=== PATIENT | female | born 1950 | race Caucasian/White ===

== ENCOUNTER 2017-04-11 08:12 | Day surgery (SDC) | payer MEDICARE ==
[2017-04-08 09:37] VITALS: BMI 24.4
[2017-04-11] MEDS ORDERED: CEFAZOLIN/Water 2 GM/20 ML SYRINGE ONE (09:05)
[2017-04-11] MEDS ORDERED: Heparin 5,000 UNITS/ML VIAL ONE (09:05)
[2017-04-11] MEDS ORDERED: Fentanyl 100 MCG/2 ML VIAL ONE ×2 (09:24→10:35)
[2017-04-11] MEDS ORDERED: Midazolam HCl 2 mg/2 ml Vial ONE (09:24)
[2017-04-11] MEDS ORDERED: HYDROcodone/Acetaminophen 5/325 mg Tablet PO PRN ×2 (09:50)
[2017-04-11] MEDS ORDERED: Zolpidem Tartrate 5 MG TAB PO PRN (09:50)
[2017-04-11] MEDS ORDERED: traMADol HCl 50 MG TAB PO PRN ×2 (09:50)
[2017-04-11] MEDS ORDERED: Promethazine HCl 25 MG/ML VIAL IM PRN (09:50)
[2017-04-11] MEDS ORDERED: Ropivacaine 0.2% 550 ML 550 ML NERVE BLCK SCH (09:50)
[2017-04-11] MEDS ORDERED: Ondansetron HCl/PF 4 MG/2 ML Vial IVP PRN (09:50)
[2017-04-11] MEDS ORDERED: Fentanyl 100 MCG/2 ML VIAL IV PRN (09:51)
[2017-04-11] MEDS ORDERED: Gentamicin 80 MG/2 ML VIAL ONE (10:27)
[2017-04-11] MEDS ORDERED: Sodium Chloride 0.9% 20 ML ONE (10:27)
[2017-04-11] MEDS ORDERED: Ketorolac Tromethamine 30 MG/ML VIAL IVP SCH (12:00)
--- NOTE | 2017-04-11 12:13 | OP ---
PREOPERATIVE DIAGNOSES: 1. Right breast cancer. 2. Status post breast disproportion of breast reconstruction. 3. Axillary deformity. POSTOPERATIVE DIAGNOSES: 1. Right breast cancer. 2. Status post breast disproportion of breast reconstruction. 3. Axillary deformity. PROCEDURES: 1. Placement of right breast implant (). 2. Scar revision right axilla (14 cm) (42807, 13691 x2). OPERATIVE PROCEDURE: Following induction of adequate anesthesia, the patient was prepped and draped in the usual sterile fashion in the supine position. The existing right inframammary scar was incise d. Dissection was carried sharply down through the breast capsule to identify the implant pocket. T he pocket was inspected and was widely open. A sizer was used to determine what implant would give t he best symmetry. The above were a 590 mL smooth round implant was chosen. This was placed with chiquita rile gloves and after that field was copiously irrigated and inspected for meticulous hemostasis. Th e incision was closed with 3-0 PDS suture, followed by 3-0 Monocryl suture. The patient had a large tongue of tissue in her axilla. This was as a result of the mastectomy scar. This was elliptically excised and closed using 3-0 PDS suture and 3-0 Monocryl suture. The scar revision was 14 cm. The p atient tolerated the procedure well.
[2017-04-11] MEDS ORDERED: Ropivacaine 0.5% HCl/PF (150 MG/30 ML VIAL) ONE (13:41)
[2017-04-11] MEDS ORDERED: Ondansetron HCl/PF 4 MG/2 ML Vial ONE (15:03)
[2017-04-11] MEDS ORDERED: Lidocaine 1% PF 5 ML VIAL ONE (15:03)
[2017-04-11] MEDS ORDERED: PROPOFOL 200 MG/20 ML VIAL ONE (15:03)
[2017-04-11] MEDS ORDERED: Dexamethasone 20 MG/5 ML VIAL ONE (15:03)
== END 2017-04-11 13:55 | disposition home or self-care (01) ==
LOC: SDC 08:12
PROVIDERS: ATTEND Plastic Surgery
PROC: 0HRT0JZ Replacement of Right Breast with Synthetic Substitute, Open Approach (ICD-10-PCS; principal; 2017-04-11)
PROC: 0HBTXZZ (ICD-10-PCS; 2017-04-11)
DX: T85.44XA Capsular contracture of breast implant, initial encounter (principal); N64.89 Other specified disorders of breast; M19.90 Unspecified osteoarthritis, unspecified site; Z91.048 Other nonmedicinal substance allergy status; Z79.82 Long term (current) use of aspirin; Z79.899 Other long term (current) drug therapy; Z90.11 Acquired absence of right breast and nipple; Z98.890 Other specified postprocedural states; Z85.3 Personal history of malignant neoplasm of breast
CPT/HCPCS: 13101; 13102 ×2; 19342; A4306; 88305; A4216; J1100; J1580; J1644; J2001; J2250; J2405; J2704; J2795; J3010; J3370; J3490

== ENCOUNTER 2017-12-09 09:36 | Outpatient (CLI) | payer MEDICARE ==
--- NOTE | 2017-12-09 15:29 | BD ---
DEXA BONE DENSITY STUDY: Date: 12/09/17 COMPARISON: 12/02/14. HISTORY: 67-year-old postmenopausal female for screening for osteoporosis. FINDINGS: Lumbar Spine: BMD (g/cm2) L1 0.951 T-Score: -0.4 L2 1.098 T-Score: 0.6 L3 1.216 T-Score: 1.2 L4 1.072 T-Score: 0.1 L1-L4 1.087 T-Score: 0.4 Femoral Neck: 0.711 T-Score: -1.2 Total Femur: 0.884 T-Score: -0.5 IMPRESSION: Osteopenia. This patient has a 10 year WHO fracture risk of a major osteoporotic fracture of 9.3% and a hip fracture of 1.0%. POS: ANA LILIA
== END 2017-12-09 09:37 | disposition home or self-care (01) ==
LOC: BICMAMMO 09:36
PROVIDERS: ATTEND Family Medicine
DX: Z12.31 Encounter for screening mammogram for malignant neoplasm of breast (principal); M85.859 Other specified disorders of bone density and structure, unspecified thigh; Z80.3 Family history of malignant neoplasm of breast; Z85.3 Personal history of malignant neoplasm of breast
CPT/HCPCS: 77063; 77067; 77080

== ENCOUNTER 2018-10-20 08:55 | Day surgery (SDC) | payer MEDICARE ==
[2018-10-19 11:10] VITALS: BMI 24.3
[2018-10-20] MEDS ORDERED: Heparin 5,000 UNITS/ML VIAL ONE (09:19)
[2018-10-20] MEDS ORDERED: Fentanyl 100 MCG/2 ML VIAL ONE ×3 (10:19→14:04)
[2018-10-20] MEDS ORDERED: Famotidine/PF 20 mg/2ml Vial ONE (10:19)
[2018-10-20] MEDS ORDERED: Bupivacaine/Epinephrine 0.25% 30 ML VIAL ONE (10:31)
[2018-10-20] MEDS ORDERED: Gentamicin 80 MG/2 ML VIAL ONE (10:31)
[2018-10-20] MEDS ORDERED: Sodium Chloride 0.9% 10 ML ONE (10:31)
[2018-10-20] MEDS ORDERED: EPINEPHrine 1 MG/ML AMP ONE (10:31)
[2018-10-20] MEDS ORDERED: Lidocaine 1% PF 5 ML VIAL ONE (13:36)
[2018-10-20] MEDS ORDERED: Ondansetron PF 4 MG/2 ML Vial ONE (13:36)
[2018-10-20] MEDS ORDERED: PROPOFOL 200 MG/20 ML VIAL ONE (13:36)
[2018-10-20] MEDS ORDERED: Rocuronium Bromide 10 MG/ML (10ML VIAL) ONE (13:36)
[2018-10-20] MEDS ORDERED: Glycopyrrolate 0.2 MG/ML 5 ML SYRINGE ONE (13:36)
[2018-10-20] MEDS ORDERED: Ketorolac Tromethamine 30 MG/ML VIAL ONE (13:36)
[2018-10-20] MEDS ORDERED: Dexamethasone 20 MG/5 ML VIAL ONE (13:36)
[2018-10-20] MEDS ORDERED: Metoclopramide HCl 10 MG/2 ML VIAL ONE (13:36)
[2018-10-20] MEDS ORDERED: PHENYLEPHRINE-NS 100 MCG/ML 10 ML SYRINGE ONE (13:36)
[2018-10-20] MEDS ORDERED: Promethazine HCl 25 MG/ML VIAL IM/IV PRN (14:15)
[2018-10-20] MEDS ORDERED: Ondansetron HCl/PF 4 MG/2 ML Vial IVP PRN (14:15)
[2018-10-20] MEDS ORDERED: Non-Formulary Medication 1 EACH PO PRN (14:15)
--- NOTE | 2018-10-23 12:34 | OP ---
DATE OF PROCEDURE: 10/20/2018 PREOPERATIVE DIAGNOSES: 1. History of breast cancer. 2. Disproportion of breast reconstruction. 3. Asymmetry of breast reconstruction. PROCEDURES PERFORMED: 1. Exchange right breast implant. 2. Left mastopexy. DESCRIPTION OF PROCEDURE: Upon induction of adequate anesthesia, the patient prepped and draped in usual sterile fashion in supine position. Attention was first turned to the right breast. The existing inframammary crease incision for scar was incised. Dissection was carried sharply down through the subcutaneous tissue to the capsule which was opened. The existing implant was removed. This was replaced with a [place] smooth round moderate plus profile implant. The pocket was copiously irrigated and inspected for meticulous hemostasis prior to closure with 3-0 PDS suture for the capsule followed by 3-0 PDS suture and 3-0 Monocryl suture for the inframammary crease incision. On the left breast, the disproportion was a combination of size as well as a very different inframammary crease. It was significantly lower on the left making bra wearing to be difficult. A transverse ellipse graft tissue was excised inferiorly. The inferior abdominal flap was then advanced superiorly and secured in an elevated position using interrupted running 2-0 PDS suture. This "reverse lift" essentially tucked the breast, then at a higher position of the inframammary crease. The remainder of the closure was done with 3-0 PDS suture and 3-0 Monocryl suture. The patient tolerated the procedure well. Job ID: [id number] [facility]
== END 2018-10-20 16:01 | disposition home or self-care (01) ==
LOC: SDC 08:55
PROVIDERS: ATTEND Plastic Surgery
PROC: 0H0T0ZZ Alteration of Right Breast, Open Approach (ICD-10-PCS; principal; 2018-10-20)
PROC: 0HPU0JZ Removal of Synthetic Substitute from Left Breast, Open Approach (ICD-10-PCS; 2018-10-20)
PROC: 0HRU0JZ Replacement of Left Breast with Synthetic Substitute, Open Approach (ICD-10-PCS; 2018-10-20)
DX: N60.22 Fibroadenosis of left breast (principal); N65.1 Disproportion of reconstructed breast; Z91.048 Other nonmedicinal substance allergy status; Z85.3 Personal history of malignant neoplasm of breast
CPT/HCPCS: 19316; 19380; 88305; 88341; 88342; L8600; J0131; J0171; J0690; J1100; J1580; J1644; J1885; J2001; J2405; J2704; J2765; J3010; J3370; J3490; S0028

== ENCOUNTER 2018-12-06 17:55 | Emergency (ER) | payer MEDICARE ==
[2018-12-06 18:23] LABS: #Basophils 0.1 thou/uL (0.0-0.2); #Eosinphils 0.1 thou/uL (0.0-0.7); #Monocytes 0.5 thou/uL (0.11-0.59); #Neutrophils 2.7 thou/uL (1.40-6.50); %Basophils 1.1 % (0.0-1.0); %Eosinophils 1.7 % (0.0-10.0); %Lymphocytes 46.5 % (21.0-51.0); %Monocytes 8.3 % (0.0-10.0); %Neutrophils 42.5 % (42.0-75.0); Hemoglobin 13.8 g/dL (12.0-16.0); Mean Corpuscular HGB CONC 34.1 g/dL (32.0-36.0); Mean Corpuscular Hemoglobin 32.2 pg (27.0-31.0); Mean Corpuscular Volume 94.3 fL (78.0-98.0); Mean Platelet Volume 7.7 fL (7.4-10.4); Platelet Count 239 thou/uL (130-400); RBC Distribution Width 12.4 % (11.5-14.5); Red Blood Cell (RBC) Count 4.29 mill/uL (4.20-5.40); White Blood Cell (WBC) Count 6.4 thou/uL (4.8-10.8)
[2018-12-06] MEDS ORDERED: Aspirin 325 MG TAB ONE (18:29)
--- NOTE | 2018-12-06 18:37 | RAD ---
PORTABLE CHEST: 12/06/18 HISTORY: Chest pain. Lungs are clear. Heart and mediastinum unremarkable. No evidence of vascular congestion. IMPRESSION: No acute findings. POS: AGW
[2018-12-06 18:45] LABS: ALT (SGPT) 37 U/L (8-55); AST (SGOT) 34 U/L (5-34); Albumin 4.4 g/dL (3.4-4.8); Alkaline Phosphatase 51 U/L (40-110); Anion Gap 13 mmol/L (10-20); BUN (Urea Nitrogen) 12 mg/dL (9.8-20.1); Bilirubin, Total 0.3 mg/dL (0.2-1.2); CK (CPK) 91 U/L (29-168); Calc. Creatinine Clearance 0 mL/min (70-130); Calcium 9.8 mg/dL (7.8-10.44); Carbon Dioxide 24 mmol/L (23-31); Chloride 107 mmol/L (98-107); Estimated GFR-MDRD 76; Globulin 2.8 g/dL (2.4-3.5); Glucose 92 mg/dL (80-115); Lipase 30 U/L (8-78); Potassium 4.1 mmol/L (3.5-5.1); Protein, Total 7.2 g/dL (6.0-8.3); Sodium 140 mmol/L (136-145)
--- NOTE | 2018-12-06 19:21 | CT ---
CT ANGIOGRAM THORAX WITH IV CONTRAST AND 3-D RECONSTRUCTIONS CLINICAL INDICATION: Chest pain which started yesterday. Patient states nonexertional substernal chest pain radiating to l eft breast. COMPARISON: None FINDINGS: Pulmonary arteries: No filling defects are seen in the pulmonary arteries to suggest a pulmonary embo riky. Aorta: Not opacified but it normal in caliber with scattered vascular calcifications. Lungs: Clear without evidence of consolidation or pleural effusion. No pulmonary nodule or mass is se en. Mediastinum: There is no evidence of lymphadenopathy. Thyroid gland: Grossly within normal limits for phase of imaging. Osseous structures: Degenerative changes are seen in the spine. No suspicious lytic or sclerotic osse ous lesions are identified. Chest wall: There are postsurgical changes related to right mastectomy with right breast prosthesis n oted. Upper abdomen: Postsurgical changes of the stomach are noted. Vascular calcifications are seen in the abdominal aorta. IMPRESSION: 1. No CT evidence of a pulmonary embolus.
[2018-12-06 20:24] LABS: Troponin I Less than 0.010 ng/mL (< 0.028)
== END 2018-12-06 20:55 | disposition home or self-care (01) ==
LOC: ERS 17:55
DX: R07.89 Other chest pain (principal); E78.5 Hyperlipidemia, unspecified; E78.00 Pure hypercholesterolemia, unspecified; F32.9 Major depressive disorder, single episode, unspecified; F41.9 Anxiety disorder, unspecified; Z85.3 Personal history of malignant neoplasm of breast; Z79.899 Other long term (current) drug therapy
CPT/HCPCS: 36415; 71045; 71275; 80053; 82550; 83690; 83880; 84484; 85025; 93005; 96360

== ENCOUNTER 2019-02-09 10:01 | Outpatient (CLI) | payer MEDICARE ==
--- NOTE | 2019-02-09 11:24 | MMO ---
Bilateral MAMMO Bilat Screen [facility]. CLINICAL HISTORY: Patient is 68 years old and is seen for screening. The patient has a history of left Breast reduction at age 68, left Breast reduction at age 51 - benign, right Mastectomy at age 51 - malignant and left Excisional Biopsy at age 15 - benign. VIEWS: The views performed were: bilateral craniocaudal with tomosynthesis and bilateral mediolateral oblique with tomosynthesis. FILMS COMPARED: The present examination has been compared to prior imaging studies performed at [facility] on 12/02/2014, 12/04/2015, 12/07/2016 and 12/09/2017. This study has been interpreted with the assistance of computer-aided detection. MAMMOGRAM FINDINGS: The breast is heterogeneously dense, which could obscure a lesion on mammography. There are stable benign appearing calcifications seen in the left breast. There are no suspicious masses, suspicious calcifications, or new areas of architectural distortion. IMPRESSION: THERE IS NO MAMMOGRAPHIC EVIDENCE OF MALIGNANCY. A ROUTINE FOLLOW-UP MAMMOGRAM IN 1 YEAR IS RECOMMENDED. THE RESULTS OF THIS EXAM WERE SENT TO THE PATIENT. ACR BI-RADS Category 2 - Benign finding MAMMOGRAPHY NOTE: 1. A negative mammogram report should not delay a biopsy if a dominant of clinically suspicious mass is present. 2. Approximately 10% to 15% of breast cancers are not detected by mammography. 3. Adenosis and dense breasts may obscure an underlying neoplasm. Reported by: SANDHYA EPSTEIN MD Electonically Signed: [id number]
== END 2019-02-09 10:02 | disposition home or self-care (01) ==
LOC: BICMAMMO 10:01
PROVIDERS: ATTEND Family Medicine
DX: Z12.31 Encounter for screening mammogram for malignant neoplasm of breast (principal)
CPT/HCPCS: 77063; 77067

== ENCOUNTER 2020-03-07 10:01 | Outpatient (CLI) | payer MEDICARE ==
--- NOTE | 2020-03-07 10:49 | MMO ---
Bilateral MAMMO Bilat Screen [facility]. CLINICAL HISTORY: Patient is 69 years old and is seen for screening. The patient has the following family history of breast cancer: paternal aunt, malignant (generic), X3. The patient has a history of left Breast reduction at age 68, left Breast reduction at age 51 - benign, right Mastectomy at age 51 - malignant and left Excisional Biopsy at age 15 - benign. VIEWS: The views performed were: left craniocaudal with tomosynthesis and left mediolateral oblique with tomosynthesis. FILMS COMPARED: The present examination has been compared to prior imaging studies performed at [facility] on 12/04/2015, 12/07/2016, 12/09/2017 and 02/09/2019. This study has been interpreted with the assistance of computer-aided detection. MAMMOGRAM FINDINGS: The breast is heterogeneously dense, which could obscure a lesion on mammography. There are benign appearing calcifications seen in the left breast. There are no suspicious masses, suspicious calcifications, or new areas of architectural distortion. IMPRESSION: THERE IS NO MAMMOGRAPHIC EVIDENCE OF MALIGNANCY. A ROUTINE FOLLOW-UP MAMMOGRAM IN 1 YEAR IS RECOMMENDED. THE RESULTS OF THIS EXAM WERE SENT TO THE PATIENT. ACR BI-RADS Category 2 - Benign finding MAMMOGRAPHY NOTE: 1. A negative mammogram report should not delay a biopsy if a dominant of clinically suspicious mass is present. 2. Approximately 10% to 15% of breast cancers are not detected by mammography. 3. Adenosis and dense breasts may obscure an underlying neoplasm. Reported by: FRANCIA AVILA MD Electonically Signed: [id number]
== END 2020-03-07 10:02 | disposition home or self-care (01) ==
LOC: BICMAMMO 10:01
PROVIDERS: ATTEND Family Medicine
DX: Z12.31 Encounter for screening mammogram for malignant neoplasm of breast (principal); Z80.3 Family history of malignant neoplasm of breast; Z98.82 Breast implant status; Z91.89 Other specified personal risk factors, not elsewhere classified; Z90.11 Acquired absence of right breast and nipple
CPT/HCPCS: 77063; 77067

== ENCOUNTER 2021-03-09 10:22 | Outpatient (CLI) | payer MEDICARE | END 2021-03-09 10:23 | disposition home or self-care (01) | LOC: BICMAMMO 10:22 | PROVIDERS: ATTEND Family Medicine | DX: Z12.31 Encounter for screening mammogram for malignant neoplasm of breast (principal); Z80.3 Family history of malignant neoplasm of breast; Z85.3 Personal history of malignant neoplasm of breast; Z91.89 Other specified personal risk factors, not elsewhere classified; Z90.11 Acquired absence of right breast and nipple; Z98.890 Other specified postprocedural states | CPT/HCPCS: 77063; 77067 ==

== ENCOUNTER 2022-06-22 13:07 | Outpatient (CLI) | payer MEDICARE | END 2022-06-22 13:08 | disposition home or self-care (01) | LOC: BICMAMMO 13:07 | PROVIDERS: ATTEND Family Medicine | DX: Z12.31 Encounter for screening mammogram for malignant neoplasm of breast (principal) | CPT/HCPCS: 77063; 77067 ==

== ENCOUNTER 2023-01-20 17:39 | Inpatient (IN) | payer MEDICARE ==
[2023-01-20 18:01] LABS: #Monocytes 0.6 thou/uL (0.11-0.59); #Neutrophils 5.7 thou/uL (1.40-6.50); %Basophils 0.1 % (0.0-1.0); %Lymphocytes 6.7 % (21.0-51.0); %Monocytes 9.3 % (0.0-10.0); %Neutrophils 83.5 % (42.0-75.0); Mean Corpuscular HGB CONC 35.1 g/dL (32.0-36.0); Mean Corpuscular Hemoglobin 31.6 pg (27.0-31.0); Mean Platelet Volume 9.8 fL (7.4-10.4); Platelet Count 132 10x3/uL (130-400); RBC Distribution Width 12.1 % (11.5-14.5); Red Blood Cell (RBC) Count 4.11 mill/uL (4.20-5.40); White Blood Cell (WBC) Count 6.9 10x3/uL (4.8-10.8)
[2023-01-20] MEDS ORDERED: Cefepime 2 GM VIAL ONE (18:09)
[2023-01-20] MEDS ORDERED: Sodium Chloride 0.9% 100 ML ONE (18:10)
[2023-01-20 18:25] LABS: ALT (SGPT) 14 U/L (8-55); AST (SGOT) 16 U/L (5-34); Albumin 3.5 g/dL (3.4-4.8); Alkaline Phosphatase 61 U/L (40-110); Anion Gap 12 mmol/L (10-20); BUN (Urea Nitrogen) 14 mg/dL (9.8-20.1); Bilirubin, Total 0.7 mg/dL (0.2-1.2); Calc. Creatinine Clearance 0 mL/min (70-130); Calcium 8.2 mg/dL (7.8-10.44); Carbon Dioxide 25 mmol/L (23-31); Chloride 96 mmol/L (98-107); Estimated GFR 76; Globulin 2.8 g/dL (2.4-3.5); Glucose 83 mg/dL (83-110); Lipase 12 U/L (8-78); Potassium 3.4 mmol/L (3.5-5.1); Protein, Total 6.3 g/dL (5.8-8.1); Sodium 130 mmol/L (136-145)
[2023-01-20 19:13] LABS: Bacteria/HPF None Seen HPF (None Seen); Bilirubin Negative (Negative); Blood, Urine 1+ (Negative); CAUTI Indications for Culture Alt mental st,lethar; Clarity Clear (Clear); Glucose, Urine (Dipstick) Normal (Negative); Ketone, Urine 40 mg/dL (Negative); Leukocyte Negative Leu/uL (Negative); Nitrite Negative (Negative); Protein, Urine (Dipstick) 10 mg/dL (Neg-Trace); Specific Gravity, Urine 1.013 (1.002-1.036); Squamous Epithelial 0-3 HPF (0-3); Urobilinogen Normal mg/dL (Less than 2); WBC/HPF 0-3 HPF (0-3)
[2023-01-20 19:14] LABS: Urine Culture Reflex No No
[2023-01-20] MEDS ORDERED: Vancomycin 1 GM/200 ML (FROZEN) BAG ONE (19:46)
[2023-01-20 19:54] LABS: SARS-CoV-2 NAA Rapid Test DETECTED (NotDetected)
[2023-01-20] MEDS ORDERED: Sodium Chloride 0.9% 1,000 ML IV SCH ×2 (21:00→22:45)
[2023-01-20 22:10] VITALS: BMI 23.0
[2023-01-20] MEDS ORDERED: Acetaminophen 325 MG TAB PO PRN (22:45)
[2023-01-20] MEDS ORDERED: Ondansetron ODT 4 MG TAB PO PRN (22:45)
[2023-01-20] MEDS ORDERED: Ondansetron PF 4 MG/2 ML Vial IVP PRN (22:45)
[2023-01-20] MEDS ORDERED: Potassium Chloride 20 MEQ TAB PO SCH (23:00)
[2023-01-20] MEDS ORDERED: REMDESIVIR 200 MG in Sodium Chloride 0.9% 250 ML 210 ML IV SCH (23:45)
[2023-01-20] MEDS ORDERED: Pharmacy to Dose REMDESIVIR IVPB PRN (23:56)
[2023-01-21] MEDS ORDERED: ALPRAZolam 0.25 MG TAB PO PRN (00:27)
[2023-01-21 05:54] LABS: #Monocytes 0.5 thou/uL (0.11-0.59); #Neutrophils 4.2 thou/uL (1.40-6.50); %Basophils 0.2 % (0.0-1.0); %Lymphocytes 19.6 % (21.0-51.0); %Neutrophils 71.7 % (42.0-75.0); Hematocrit 33.7 % (36.0-47.0); Hemoglobin 11.6 g/dL (12.0-16.0); Mean Corpuscular HGB CONC 34.4 g/dL (32.0-36.0); Mean Corpuscular Hemoglobin 30.9 pg (27.0-31.0); Mean Corpuscular Volume 89.6 fl (78.0-98.0); Mean Platelet Volume 9.7 fL (7.4-10.4); Platelet Count 142 10x3/uL (130-400); RBC Distribution Width 12.2 % (11.5-14.5); Red Blood Cell (RBC) Count 3.76 mill/uL (4.20-5.40); White Blood Cell (WBC) Count 5.8 10x3/uL (4.8-10.8)
[2023-01-21 06:19] LABS: AST (SGOT) 14 U/L (5-34); Anion Gap 12 mmol/L (10-20); BUN (Urea Nitrogen) 10 mg/dL (9.8-20.1); Calc. Creatinine Clearance 76 mL/min (70-130); Calcium 8.1 mg/dL (7.8-10.44); Carbon Dioxide 24 mmol/L (23-31); Chloride 98 mmol/L (98-107); Estimated GFR 91; Glucose 89 mg/dL (83-110); Sodium 131 mmol/L (136-145)
[2023-01-21 06:20] LABS: ALT (SGPT) 13 U/L (8-55)
[2023-01-21] MEDS ORDERED: Potassium Chloride 20 MEQ TAB PO SCH (08:00)
[2023-01-21] MEDS ORDERED: METHYLPHENIDATE HCL 10 MG PO SCH (09:00)
[2023-01-21] MEDS: Aripiprazole 10 MG TAB PO SCH (09:45)
[2023-01-21] MEDS: DULoxetine 60 MG CAP PO SCH (09:45)
[2023-01-21] MEDS: Triamterene/Hydrochlorothiazide 37.5 mg/25 mg Tablet PO SCH (09:46)
[2023-01-21] MEDS: risperiDONE 1 MG TAB PO SCH (09:46)
[2023-01-21] MEDS: Famotidine 20 MG TAB PO SCH ×2 (09:46→20:52)
[2023-01-21] MEDS: Sodium Chloride 0.9% 1,000 ML IV SCH (11:30)
[2023-01-21] MEDS ORDERED: Potassium Bicarbonate/Cit Ac 20 MEQ TAB PO SCH (16:00)
[2023-01-21] MEDS: REMDESIVIR 100 MG in Sodium Chloride 0.9% 250 ML 230 ML IV SCH (20:47)
[2023-01-21] MEDS: Rosuvastatin 10 MG TAB PO SCH (20:52)
[2023-01-22] MEDS: Sodium Chloride 0.9% 1,000 ML IV SCH ×2 (04:50→18:07)
[2023-01-22 07:50] LABS: ALT (SGPT) 21 U/L (8-55); AST (SGOT) 25 U/L (5-34); Albumin 3.2 g/dL (3.4-4.8); Alkaline Phosphatase 62 U/L (40-110); Anion Gap 12 mmol/L (10-20); BUN (Urea Nitrogen) 10 mg/dL (9.8-20.1); Bilirubin, Total 0.5 mg/dL (0.2-1.2); Calc. Creatinine Clearance 78 mL/min (70-130); Calcium 8.3 mg/dL (7.8-10.44); Carbon Dioxide 26 mmol/L (23-31); Chloride 99 mmol/L (98-107); Estimated GFR 92; Globulin 2.4 g/dL (2.4-3.5); Glucose 88 mg/dL (83-110); Potassium 3.6 mmol/L (3.5-5.1); Protein, Total 5.6 g/dL (5.8-8.1); Sodium 133 mmol/L (136-145)
[2023-01-22] MEDS: risperiDONE 1 MG TAB PO SCH (10:23)
[2023-01-22] MEDS: Famotidine 20 MG TAB PO SCH ×2 (10:23→20:45)
[2023-01-22] MEDS: DULoxetine 60 MG CAP PO SCH (10:23)
[2023-01-22] MEDS: Triamterene/Hydrochlorothiazide 37.5 mg/25 mg Tablet PO SCH ×2 (10:24→10:30)
[2023-01-22] MEDS: Aripiprazole 10 MG TAB PO SCH (10:24)
[2023-01-22] MEDS: REMDESIVIR 100 MG in Sodium Chloride 0.9% 250 ML 230 ML IV SCH (20:44)
[2023-01-22] MEDS: Rosuvastatin 10 MG TAB PO SCH (20:45)
[2023-01-23 07:57] LABS: ALT (SGPT) 18 U/L (8-55); AST (SGOT) 16 U/L (5-34); Albumin 2.8 g/dL (3.4-4.8); Alkaline Phosphatase 57 U/L (40-110); Anion Gap 10 mmol/L (10-20); BUN (Urea Nitrogen) 10 mg/dL (9.8-20.1); Bilirubin, Total 0.6 mg/dL (0.2-1.2); Calc. Creatinine Clearance 88 mL/min (70-130); Calcium 8.1 mg/dL (7.8-10.44); Carbon Dioxide 26 mmol/L (23-31); Chloride 103 mmol/L (98-107); Estimated GFR 95; Globulin 2.4 g/dL (2.4-3.5); Glucose 87 mg/dL (83-110); Potassium 3.7 mmol/L (3.5-5.1); Protein, Total 5.2 g/dL (5.8-8.1); Sodium 135 mmol/L (136-145)
[2023-01-23] MEDS: risperiDONE 1 MG TAB PO SCH (09:03)
[2023-01-23] MEDS: Famotidine 20 MG TAB PO SCH ×2 (09:04→20:29)
[2023-01-23] MEDS: DULoxetine 60 MG CAP PO SCH (09:04)
[2023-01-23] MEDS: Aripiprazole 10 MG TAB PO SCH (09:05)
[2023-01-23] MEDS: Sodium Chloride 0.9% 1,000 ML IV SCH (09:06)
[2023-01-23] MEDS: REMDESIVIR 100 MG in Sodium Chloride 0.9% 250 ML 230 ML IV SCH (20:28)
[2023-01-23] MEDS: Rosuvastatin 10 MG TAB PO SCH (20:28)
[2023-01-24 06:49] LABS: ALT (SGPT) 14 U/L (8-55); AST (SGOT) 13 U/L (5-34); Alkaline Phosphatase 59 U/L (40-110); Anion Gap 10 mmol/L (10-20); BUN (Urea Nitrogen) 12 mg/dL (9.8-20.1); Bilirubin, Total 0.5 mg/dL (0.2-1.2); Calc. Creatinine Clearance 78 mL/min (70-130); Calcium 8.3 mg/dL (7.8-10.44); Carbon Dioxide 25 mmol/L (23-31); Chloride 104 mmol/L (98-107); Estimated GFR 92; Globulin 2.3 g/dL (2.4-3.5); Glucose 97 mg/dL (83-110); Potassium 3.7 mmol/L (3.5-5.1); Protein, Total 5.3 g/dL (5.8-8.1); Sodium 135 mmol/L (136-145)
[2023-01-24] MEDS ORDERED: Polyethylene Glycol 3350 17 GM Packet PO PRN (07:04)
[2023-01-24] MEDS: risperiDONE 1 MG TAB PO SCH (08:02)
[2023-01-24] MEDS: DULoxetine 60 MG CAP PO SCH (08:02)
[2023-01-24] MEDS: Aripiprazole 10 MG TAB PO SCH (08:02)
[2023-01-24] MEDS: Famotidine 20 MG TAB PO SCH ×2 (08:03→20:25)
[2023-01-24] MEDS: Rosuvastatin 10 MG TAB PO SCH (20:25)
[2023-01-24] MEDS: REMDESIVIR 100 MG in Sodium Chloride 0.9% 250 ML 230 ML IV SCH (20:26)
[2023-01-25] MEDS: Famotidine 20 MG TAB PO SCH (08:22)
[2023-01-25] MEDS: risperiDONE 1 MG TAB PO SCH (08:22)
[2023-01-25] MEDS: Aripiprazole 10 MG TAB PO SCH (08:22)
[2023-01-25] MEDS: DULoxetine 60 MG CAP PO SCH (08:22)
[2023-01-25 08:29] VITALS: BP 127/83; TEMP 97.5
[2023-01-25 08:33] LABS: ALT (SGPT) 14 U/L (8-55); AST (SGOT) 12 U/L (5-34); Albumin 3.1 g/dL (3.4-4.8); Alkaline Phosphatase 62 U/L (40-110); Anion Gap 11 mmol/L (10-20); BUN (Urea Nitrogen) 12 mg/dL (9.8-20.1); Bilirubin, Total 0.5 mg/dL (0.2-1.2); Calc. Creatinine Clearance 73 mL/min (70-130); Calcium 8.8 mg/dL (7.8-10.44); Carbon Dioxide 28 mmol/L (23-31); Chloride 103 mmol/L (98-107); Estimated GFR 89; Globulin 2.7 g/dL (2.4-3.5); Glucose 93 mg/dL (83-110); Potassium 3.8 mmol/L (3.5-5.1); Protein, Total 5.8 g/dL (5.8-8.1); Sodium 138 mmol/L (136-145)
== END 2023-01-25 10:55 | disposition home or self-care (01) | DRG 177 ==
LOC: ERS 17:39 → T4-B 20:53
PROVIDERS: ADMIT Student in an Organized Health Care Education/Training Program; ATTEND Student in an Organized Health Care Education/Training Program
PROC: 8E0ZXY6 Isolation (ICD-10-PCS; 2023-01-20)
PROC: XW033E5 Introduction of Remdesivir Anti-infective into Peripheral Vein, Percutaneous Approach, New Technology Group 5 (ICD-10-PCS; principal; 2023-01-21)
DX: U07.1 COVID-19 (principal); G93.41 Metabolic encephalopathy; J96.01 Acute respiratory failure with hypoxia; E87.1 Hypo-osmolality and hyponatremia; E78.00 Pure hypercholesterolemia, unspecified; I10 Essential (primary) hypertension; F41.9 Anxiety disorder, unspecified; F32.A Depression, unspecified; E86.0 Dehydration; E87.6 Hypokalemia; Z85.3 Personal history of malignant neoplasm of breast; Z90.710 Acquired absence of both cervix and uterus; Z98.890 Other specified postprocedural states; Z88.8 Allergy status to other drugs, medicaments and biological substances; Z79.899 Other long term (current) drug therapy
CPT/HCPCS: 36415; 70450; 71045; 80048; 80053; 81001; 83605; 83690; 83930; 83935; 84300; 84450; 84460; 85025; 87040; 87086; 93005; 96365; 96366; 96367; J0248; J0692; J1650; J3370-JW; J3490; J7050

== ENCOUNTER 2024-01-17 12:29 | Outpatient (CLI) | payer MEDICARE | END 2024-01-17 12:30 | disposition home or self-care (01) | LOC: BICCT 12:29 | PROVIDERS: ATTEND Family Medicine | DX: F03.90 Unspecified dementia, unspecified severity, without behavioral disturbance, psychotic disturbance, mood disturbance, and anxiety (principal); F95.2 Tourette's disorder | CPT/HCPCS: 70450 ==